=== PATIENT | male | born 1960 | race Two or more races ===

== ENCOUNTER 2017-03-07 12:58 | Inpatient (IN) | payer OTHER ==
[~2017-03-07] VITALS: Ht 165.1 cm; Wt 84.4 kg
[2017-03-07] MEDS ORDERED: VERAPAMIL ER120 MG (13:04)
[2017-03-07] MEDS ORDERED: CLOPIDOGREL BIS75 MG (13:05)
[2017-03-07] MEDS ORDERED: LOSARTAN-HCTZ1 EAC2 (13:05)
[2017-03-07] MEDS ORDERED: AMLODIPINE BES2.5 MG (13:05)
[2017-03-07] MEDS ORDERED: RANITIDINE HCL150 M1 (13:06)
[2017-03-07] MEDS ORDERED: FORTAMET1000 MG (13:06)
[2017-03-07] MEDS ORDERED: ADULT ASPIRIN81 MG (13:06)
[2017-03-07] MEDS ORDERED: PROTONIX40 M1 (13:06)
[2017-03-07] MEDS ORDERED: NEURONTIN300 MG (13:07)
[2017-03-07] MEDS ORDERED: LAMICTAL100 M1 (13:07)
[2017-03-07] MEDS ORDERED: PROZAC40 MG (13:07)
[2017-03-07] MEDS ORDERED: CLONAZEPAM1 GM (13:07)
[2017-03-07] MEDS ORDERED: GEMFIBROZIL600 MG (13:08)
[2017-03-07] MEDS ORDERED: PRAVASTATIN SOD20 MG (13:08)
[2017-03-07] MEDS ORDERED: AMBIEN CR12.5 MG (13:08)
== END 2017-03-09 12:28 | disposition home or self-care (01) | DRG 202 ==
LOC: ER 12:58 → SEC-K 19:18 → MEDI 19:18
PROC: 3E0F7GC Introduction of Other Therapeutic Substance into Respiratory Tract, Via Natural or Artificial Opening (ICD-10-PCS; principal; 2017-03-07)
PROC: 4A033R1 Measurement of Arterial Saturation, Peripheral, Percutaneous Approach (ICD-10-PCS; 2017-03-07)
PROC: BB24ZZZ Computerized Tomography (CT Scan) of Bilateral Lungs (ICD-10-PCS; 2017-03-08)
DX: J45.31 Mild persistent asthma with (acute) exacerbation (principal); F33.8 Other recurrent depressive disorders; B37.0 Candidal stomatitis; J20.9 Acute bronchitis, unspecified; I10 Essential (primary) hypertension; E11.9 Type 2 diabetes mellitus without complications; F41.8 Other specified anxiety disorders

== ENCOUNTER 2022-10-23 10:00 | Outpatient (CLI) | payer OTHER ==
[~2022-10-23 10:00] MED LIST: ADULT ASPIRIN81 MG; AMBIEN CR12.5 MG; AMLODIPINE BES2.5 MG; CLONAZEPAM1 GM; CLOPIDOGREL BIS75 MG; FORTAMET1000 MG; GEMFIBROZIL600 MG; LAMICTAL100 M1; LOSARTAN-HCTZ1 EAC2; NEURONTIN300 MG; PRAVASTATIN SOD20 MG; PROTONIX40 M1; PROZAC40 MG; RANITIDINE HCL150 M1; VERAPAMIL ER120 MG
== END 2022-10-23 10:06 | disposition home or self-care (01) ==
LOC: RX STUDY 10:00
PROVIDERS: ATTEND Internal Medicine Gastroenterology
DX: K30 Functional dyspepsia (principal); R19.5 Other fecal abnormalities

== ENCOUNTER 2023-06-07 11:12 | Outpatient (CLI) | payer OTHER | END 2023-06-07 11:13 | disposition home or self-care (01) | LOC: NUCLEAR 11:12 | PROVIDERS: ATTEND Internal Medicine Cardiovascular Disease | DX: I20.1 Angina pectoris with documented spasm (principal); I10 Essential (primary) hypertension ==